=== PATIENT | female | born 1970 | race Caucasian/White ===

== ENCOUNTER 2017-08-11 10:14 | Emergency (ER) | payer OTHER ==
[2017-08-11 10:48] VITALS: BP 132/83; PULSE 77; TEMP 98.1; BMI 22.8
--- NOTE | 2017-08-11 11:09 | PDOC ---
History of Present Illness - General Chief Complaint: Edema Stated Complaint: mild swelling to Rt side face Time Seen by Provider: 08/11/17 10:42 History Source: Patient Exam Limitations: No Limitations - History of Present Illness Initial Comments: 08/11/17 11:04 was celebrating with family and eating dinner, had a glass of red wine which she doesn't ordinarily drink and started to feel pain to her right arm. family members took BP and was normal readings. woke up the following morning and her face was swollen with some mild irregularity to the right side. Denies headache, however had URI symptoms earlier in the week. Denies fever, runny nose, moist cough is resolved. Denies numbness or tingling to hands or feet, feels thinking is clear, denies weakness anywhere but has realized has difficulty smiling and difficulties closing right eye. Timing/Duration: unsure Severity: moderate Modifying Factors: improves with: cold therapy Associated Symptoms: reports: cough, fever/chills, malaise. denies: headaches, seizure Past History - Travel Traveled outside of the country in the last 30 days: No Close contact w/someone who was outside of country & ill: No - Past Medical History Allergies/Adverse Reactions: Allergies Allergy/AdvReac Type Severity Reaction Status Date / Time No Known Allergies Allergy Verified 08/11/17 10:33 Home Medications: Ambulatory Orders Prednisone [Deltasone -] 20 mg PO BID #10 tablet 08/11/17 Valacyclovir HCl [Valtrex] 1,000 mg PO TID #21 tablet 08/11/17 COPD: No Other medical history: denies - Suicide/Smoking/Psychosocial Hx Smoking History: Current every day smoker Number of Cigarettes Smoked Daily: 1 Information on smoking cessation initiated: Yes Hx Alcohol Use: No Drug/Substance Use Hx: No Substance Use Type: None Review of Systems - Review of Systems Able to Perform ROS?: Yes Is the patient limited Korean proficient: Yes Constitutional: Yes: Symptoms Reported, See HPI, Malaise HEENTM: Yes: Symptoms Reported, See HPI, Other (facial swelling with drooping to right soide of face ). No: Eye Pain, Blurred Vision Respiratory: Yes: Symptoms reported, See HPI ABD/GI: No: Symptoms Reported : No: Symptoms Reported Musculoskeletal: Yes: Symptoms Reported Integumentary: Yes: Symptoms Reported, See HPI Neurological: Yes: Symptoms reported, See HPI, Numbness, Paresthesia All Other Systems: Reviewed and Negative *Physical Exam - Vital Signs Last Vital Signs Temp Pulse Resp BP Pulse Ox 98.1 F 77 18 132/83 98 08/11/17 10:31 08/11/17 10:31 08/11/17 10:31 08/11/17 10:31 08/11/17 10:31 - Physical Exam General Appearance: Yes: Nourished, Appropriately Dressed, Apparent Distress, Mild Distress, Moderate Distress HEENT: positive: FRANCISCA, TMs Normal, Rhinorrhea, Other (lag to right lip and inablity to close right upper lid agaijnst resistancve . some right deviation to tongue and smile). negative: Normal ENT Inspection Neck: positive: Tender, Supple, Lymphadenopathy (R), Lymphadenopathy (L) Respiratory/Chest: positive: Lungs Clear. 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 *DC/Admit/Observation/Transfer Diagnosis at time of Disposition: Solorio's palsy - Discharge Dispostion Disposition: HOME Condition at time of disposition: Stable Admit: No - Referrals - Patient Instructions Printed Discharge Instructions: DI for Solorio's Palsy Additional Instructions: Rest, drink lots of fluids Use eye lubrication as often as possible Use cotton ball and lubricating drops, close eye and tape shut at nighttime until Solorio's palsy resolves to avoid any corneal irritation or ulceration from dryness Continue prednisone 40 mg for the next 5 days total Continue Valtrex 1 g every 8 hours for one week total Follow-up with private physician and consider Lyme's disease testing Return to emergency department for worsened drooping, neurologic changes, or extension past facial nerve - Post Discharge Activity
== END 2017-08-11 12:17 | disposition home or self-care (01) ==
LOC: JERFT 10:14
DX: G51.0 Bell's palsy (principal)
CPT/HCPCS: 70450-TC; 99281-25

== ENCOUNTER 2022-12-01 14:38 | Emergency (ER) | payer BC, OTHER ==
[2022-12-01 14:44] VITALS: BP 140/66; PULSE 77; RESP 18; TEMP 98; BMI 25.6
[2022-12-01] MEDS ORDERED: RABIES VACCINE (PCEC)/PF 2.5 UNIT/VIAL IM ONE ×2 (15:50→15:56)
[2022-12-01] MEDS ORDERED: RABIES IMMUNE GLOBULIN 300 UNITS/1 ML VIAL IM ONE (15:50)
[2022-12-01] MEDS ORDERED: DIPHTH,PERTUSS(ACELL),TET 0.5 ML DISP.SYRIN IM ONE ×2 (15:50→15:56)
[2022-12-01] MEDS ORDERED: RABIES IMMUNE GLOBULIN 300 UNITS/1 ML VIAL ONE (15:56)
[2022-12-01] MEDS ORDERED: AMOX TR/POT CLAV 875MG/125MG TABLETS (FP) PO ONE (16:10)
[2022-12-01] MEDS ORDERED: AMOX TR/POT CLAV 875MG/125MG TABLETS (FP) ONE (16:12)
== END 2022-12-01 17:50 | disposition home or self-care (01) ==
LOC: JERFT 14:38
PROC: 0HQBXZZ Repair Right Upper Arm Skin, External Approach (ICD-10-PCS; principal; 2022-12-01)
PROC: 0HQDXZZ Repair Right Lower Arm Skin, External Approach (ICD-10-PCS; 2022-12-01)
PROC: 3E033GC Introduction of Other Therapeutic Substance into Peripheral Vein, Percutaneous Approach (ICD-10-PCS; 2022-12-01)
PROC: 3E0234Z Introduction of Serum, Toxoid and Vaccine into Muscle, Percutaneous Approach (ICD-10-PCS; 2022-12-01)
PROC: 3E0234Z Introduction of Serum, Toxoid and Vaccine into Muscle, Percutaneous Approach (ICD-10-PCS; 2022-12-01)
DX: S41.151A Open bite of right upper arm, initial encounter (principal); S51.811A Laceration without foreign body of right forearm, initial encounter; W54.0XXA Bitten by dog, initial encounter
CPT/HCPCS: 73090-TC-RT-FY; 90375; 90675; 90715; 99283-25

== ENCOUNTER 2022-12-04 09:00 | Emergency (ER) | payer BC ==
[2022-12-04 09:10] VITALS: BP 139/54; PULSE 85; RESP 18; TEMP 98.4; BMI 25.6
[2022-12-04] MEDS ORDERED: RABIES VACCINE (PCEC)/PF 2.5 UNIT/VIAL IM ONE ×2 (09:16→09:28)
[2022-12-04] MEDS ORDERED: BACITRACIN ZINC 15 GM TUBE TOPICAL OINTMENT ONE (09:41)
== END 2022-12-04 09:57 | disposition home or self-care (01) ==
LOC: JERFT 09:00
PROC: 3E0234Z Introduction of Serum, Toxoid and Vaccine into Muscle, Percutaneous Approach (ICD-10-PCS; principal; 2022-12-04)
DX: S51.811D Laceration without foreign body of right forearm, subsequent encounter (principal); Z29.14 Encounter for prophylactic rabies immune globulin
CPT/HCPCS: 90675; 99282-25

== ENCOUNTER 2022-12-08 12:16 | Emergency (ER) | payer BC ==
[2022-12-08 12:22] VITALS: BP 144/55; PULSE 89; RESP 18; TEMP 97.7; BMI 25.6
[2022-12-08] MEDS ORDERED: RABIES VACCINE (PCEC)/PF 2.5 UNIT/VIAL IM ONE ×2 (13:00→13:28)
== END 2022-12-08 13:40 | disposition home or self-care (01) ==
LOC: JER 12:16 → JERFT 12:16
PROC: 3E0234Z Introduction of Serum, Toxoid and Vaccine into Muscle, Percutaneous Approach (ICD-10-PCS; principal; 2022-12-08)
DX: S51.851D Open bite of right forearm, subsequent encounter (principal); W54.0XXA Bitten by dog, initial encounter; Z29.14 Encounter for prophylactic rabies immune globulin
CPT/HCPCS: 90675; 99282-25

== ENCOUNTER 2022-12-15 15:49 | Emergency (ER) | payer BC ==
[2022-12-15 15:53] VITALS: BP 130/65; PULSE 99; RESP 18; TEMP 98.4; BMI 25.7
[2022-12-15] MEDS ORDERED: RABIES VACCINE (PCEC)/PF 2.5 UNIT/VIAL IM ONE ×2 (16:48→16:54)
== END 2022-12-15 17:03 | disposition home or self-care (01) ==
LOC: JER 15:49 → JERFT 15:49
PROC: 3E0234Z Introduction of Serum, Toxoid and Vaccine into Muscle, Percutaneous Approach (ICD-10-PCS; principal; 2022-12-15)
DX: S51.851D Open bite of right forearm, subsequent encounter (principal); W54.0XXD Bitten by dog, subsequent encounter; Z29.14 Encounter for prophylactic rabies immune globulin
CPT/HCPCS: 90675; 99282-25